=== PATIENT | male | born 1995 ===

== ENCOUNTER 2018-12-12 19:40 | Emergency (ER) | payer SELFPAY ==
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
[2018-12-12 20:11] VITALS: RESP 18
[2018-12-12 20:12] VITALS: BP 113/77; PULSE 103; TEMP 99
[2018-12-13 00:16] VITALS: O2SAT 99
== END 2018-12-12 20:12 | disposition home or self-care (01) ==
LOC: C.ER 19:40
DX: T65.891A Toxic effect of other specified substances, accidental (unintentional), initial encounter (principal)